=== PATIENT | female | born 1990 ===

== ENCOUNTER 2017-03-16 11:05 | Emergency (ER) | payer OTHER ==
[~2017-03-16] VITALS: Ht 160 cm; Wt 60.3 kg
== END 2017-03-16 13:00 | disposition home or self-care (01) ==
LOC: ER 11:05
DX: S61.210A Laceration without foreign body of right index finger without damage to nail, initial encounter (principal); W45.8XXA Other foreign body or object entering through skin, initial encounter; Y93.89 Activity, other specified; Y92.69 Other specified industrial and construction area as the place of occurrence of the external cause; Y99.8 Other external cause status